=== PATIENT | female | born 1970 | race Caucasian/White ===

== ENCOUNTER 2017-03-15 08:18 | Day surgery (SDC) | payer OTHER ==
[~2017-03-15] VITALS: Ht 165.1 cm; Wt 114.7 kg
[2017-03-15] VITALS (12 sets, daily range): BP systolic 109–140; BP diastolic 50–80; PULSE 59–70; RESP 10–18; O2SAT 96–100
[~2017-03-15 08:18] MED LIST: Lactated Ringer's 1,000 ML IV ONE; MELO-253 PO
[2017-03-15] MEDS ORDERED: Dexamethasone 4 mg/mL Inj ONE (08:19)
[2017-03-15] MEDS ORDERED: Propofol 10,000 mCg/mL 20 mL Inj ONE (08:19)
[2017-03-15] MEDS ORDERED: MetoCLOpramide 5 mg/mL 2 mL Inj ONE (08:19)
[2017-03-15] MEDS ORDERED: Ondansetron 2 mg/mL 2 mL Inj ONE (08:19)
[2017-03-15] MEDS ORDERED: fentaNYL-PF 50 mCg/mL 2 mL Inj ONE (08:19)
[2017-03-15] MEDS ORDERED: Lidocaine 2%-Epi 1:100,000 20 mL Inj INFILTRATE ONE (10:26)
[2017-03-15] MEDS ORDERED: Ropivacaine-PF 0.5% 30 mL Inj INJ ONE (10:26)
[2017-03-15] MEDS ORDERED: Lactated Ringer's 500 ML IV PRN (10:27)
[2017-03-15] MEDS ORDERED: Lactated Ringer's 1,000 ML IV SCH (10:27)
[2017-03-15] MEDS ORDERED: EPHEDrine Sulfate 50 mg/mL Inj IVPUSH PRN (10:30)
[2017-03-15] MEDS ORDERED: HYDROmorphone 1 mg/mL Inj IVPUSH PRN (10:30)
[2017-03-15] MEDS ORDERED: Dexamethasone 4 mg/mL Inj IVPUSH PRN (10:30)
[2017-03-15] MEDS ORDERED: Ondansetron 2 mg/mL 2 mL Inj IVPUSH PRN (10:30)
[2017-03-15] MEDS ORDERED: Phenylephrine 10,000 mCg/mL Inj IVPUSH PRN (10:30)
[2017-03-15] MEDS ORDERED: MetoCLOpramide 5 mg/mL 2 mL Inj IVPUSH PRN (10:30)
[2017-03-15] MEDS: fentaNYL-PF 50 mCg/mL 2 mL Inj IVPUSH PRN ×2 (11:00→11:13)
[2017-03-15] MEDS ORDERED: HYDROcodone-APAP 5-325 mg Tablet PO PRN (11:05)
[2017-03-15] MEDS ORDERED: Acetaminophen IV 1,000 MG in IV Premix 1 EACH IV ONE (11:05)
[2017-03-15] MEDS ORDERED: hydrOXYzine Pamoate 25 mg Capsule PO PRN (11:05)
--- NOTE | 2017-03-15 11:39 | PCM.ANEP1 ---
Post Anesthesia Phase 1 PACU Phase 1 Assessment Vital Signs Vital Signs Date Time Temp Pulse Resp B/P Pulse Ox O2 Delivery O2 Flow Rate FiO2 03/15/17 11:38 68 10 111/61 99 Room Air 03/15/17 11:20 61 13 118/50 99 Room Air 03/15/17 11:13 67 12 110/73 99 Room Air 03/15/17 11:05 64 16 120/69 100 Room Air 03/15/17 11:00 64 13 114/72 100 Room Air 03/15/17 10:55 65 14 120/73 99 Room Air 03/15/17 10:51 36.2 64 10 118/61 99 Room Air 03/15/17 08:52 36.5 69 18 140/80 100 Room Air Anesthetic Administered: GA Level of Alertness: Awake, talking BUSTAMATNE's with Equal Strength: No Pain: No Nausea or Vomiting: No Oxygen Delivery: Room Air Dermatome Level: Full Sensation Complications: No Follow up Care: Yes Patient Instructions Provided: Yes Toan Oakes MD Mar 15, 2017 11:39
--- NOTE | 2017-03-15 11:40 | PCM.HPANE ---
Patient Data Surgeon Admitting Provider: Attending Provider:Rene Little DO Primary Care Physician:Dickson De Los Santos MD Other Provider:Phil Giraldo Anesthesia Reason for Visit Left Torn Medial Meniscus Ht/WT & BMI Height (Feet): 5 Height (Inches): 5 Weight (Kilograms): 115.485 Body Mass Index 42.00 Allergies Coded Allergies: No Known Allergies (Unverified , 03/14/17) Past Anesthesia History Anesthesia History: Denies:: Anesthesia Reactions, Fam Anesthesia Reaction, Fam Malignant Hypertherm, Malignant Hyperthermia Diabetes History Hx Diabetes?: No MRSA MRSA: No Medications Reported Medications Meloxicam 15 Mg [id number] Mg PO DAILY 30 Days Ref 0 03/14/17 History History of ENT Problems?: Yes HEENT History: Denies:: Abnormal Airway Cataracts Difficult Intubation Dysphagia Glaucoma Hearing Problem Sinus Problem TMJ Denture Type: None Teeth Condition: Within Normal Limits Other HEENT Pertinent History: S/P TONSILLECTOMY Hx of Heart Problems?: No Cardiovascular History: Denies:: Heart Murmur Hypertension Hx of Respiratory Problem?: No Respiratory History: Denies:: Use of C-PAP Machine Hx Neurologic Problems?: No Hx of GI Problems?: Yes Hx of Problems?: No Female Hx: Denies:: Currently Skin History: Denies:: History Skin Disorders? Pressure Ulcers Hx Musculoskeletal Problems?: Yes Musculoskeletal History: Positive for:: Musculoskeletal Trauma (LT KNEE MENISCAL TEAR=CURRENT PROBLEM) Hx of Psycho/Social Problems?: No Hx Surgeries?: Yes (TONSILS,HENRIK) Hx Any Other Health Problems?: Yes Other History: Denies:: Cancer Endocrine Disease Hospitalization Thyroid Disease History Blood Transfusions: Denies:: Blood Transfusions Hx Diabetes: No Have You Smoked inLast 12 mo: No Stop/Bang S-Snoring: Do You Snore Loudly: No T-Tired: feel tired, fatigued: No O-Obsered: Observed not breath: No P-Blood Pressure: treated: No A- Age over 50: No N- Neck Large Circumference: Yes G- Gender Male: No Risk Assessment Category Category 1A: Patient has history of documented sleep apnea, and HAS NOT received any narcotic, sedative or anesthesia administration during this stay. Category 1B: Patient has history of documented sleep apnea, and HAS received any narcotic , sedative or anesthesia administration during this stay Category 2: Patient has SUSPECTED Obstructive Sleep Apnea, and HAS received any narcotic , sedative or anesthesia administration during this stay. Category 3: Patient has SUSPECTED Obstructive Sleep Apnea and HAS NOT received narcotic, sedative or anesthesia administration during this stay. Category 4: Outpatient in Procedural Areas with known sleep apnea or who screen positive for High Risk via the STOP/BANG questionnaire. Exam Exam General Appearance: Alert, Oriented X3, Cooperative, No Acute Distress HEENT/AIRWAY: MP 3 Lungs: Clear to Auscultation Heart: Exam Unremarkable Plan Impression Patient chart reviewed, patient interviewed and anesthestic plan with risks, benefits, and alternatives discussed, and informed consent obtained. ASA Physical Status: ASA3 Severe Disease Anesthetic Plan: GA Bene/Risks/Altern/Consents: Yes HP Complete Prior to Induction: Yes Toan Oakes MD Mar 15, 2017 07:54
[2017-03-15] MEDS ORDERED: hydrOXYzine Inj 50 MG/1 mL SDV IM ONE (13:25)
[2017-03-15] MEDS ORDERED: EPHEDrine Sulfate 50 mg/mL Inj IM ONE (13:25)
--- NOTE | 2017-03-15 13:45 | OP ---
[address] [address] OPERATIVE REPORT PATIENT: MELISSA CONDON : 1970 MR#: [id number] ADMIT: 03/15/2017 JOB ID: [id number] DATE OF SURGERY: 03/15/2017 PREOPERATIVE DIAGNOSIS(ES): Left knee torn medial meniscus. POSTOPERATIVE DIAGNOSIS(ES): Left knee torn medial meniscus. PROCEDURE: Left knee video arthroscopy. SURGEON: Rene Little DO ANESTHESIA: General. INDICATIONS: The patient is a 46-year-old female who injured her left knee on two separate occasions and had persistent pain and catching in the knee. She had an MRI performed which demonstrated a torn medial meniscus and wished to proceed with a knee arthroscopy. We discussed the risks, benefits, and possible complications of surgery including, but not limited to injury to nerves and vessels, infection, bleeding, incomplete relief of symptoms, stiffness, need for additional procedures. The patient had good understanding. All questions were answered. She wished to proceed. PROCEDURE IN DETAIL: Patient was brought to the operating room. She was given a preoperative LMA general anesthetic. The left lower extremity was sterilely prepped and draped. An incision was made over the anterolateral knee at the level of the joint line. A blunt trocar was introduced into the knee. Inspection was undertaken. She was found to have a tear in the midbody and posterior horn medial meniscus. This was flipped underneath and posteriorly. The meniscal tear was resected back to a stable base with a combination of biters and arslan. Her ACL was intact. Her lateral compartment was pristine. 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 Some gentle chondroplasty was performed to remove loose chondral flaps on the undersurface of the patella. The scope was then removed and the portals were closed with interrupted nylon suture. Naropin was added as an adjunct local anesthetic. Sterile dressings were applied. Patient tolerated the procedure well. Blood loss was minimal. POSTOPERATIVE PROTOCOL: Have the patient weightbear to tolerance. Use crutches as needed. Ice and elevate. Follow up in two weeks or sooner if needed. She was given a prescription for [place] 5/325 as needed for pain.
== END 2017-03-15 23:59 | disposition home or self-care (01) ==
LOC: SAS 08:18
PROVIDERS: ATTEND Orthopaedic Surgery
DX: S83.242A Other tear of medial meniscus, current injury, left knee, initial encounter (principal); M22.42 Chondromalacia patellae, left knee; G89.29 Other chronic pain; E66.01 Morbid (severe) obesity due to excess calories; X50.1XXA Overexertion from prolonged static or awkward postures, initial encounter; Y93.01 Activity, walking, marching and hiking; Y92.017 Garden or yard in single-family (private) house as the place of occurrence of the external cause; Y99.8 Other external cause status; Z68.41 Body mass index [BMI] 40.0-44.9, adult
CPT/HCPCS: 29881; J0131; J1100; J1170; J1885; J2405; J2765; J2795; J3010; J3410; J7120